=== PATIENT | female | born 1995 | race Hispanic/Latino ===

== ENCOUNTER 2018-09-17 20:41 | Emergency (ER) | payer OTHER ==
[2018-09-17 20:49] VITALS: BP 115/76; PULSE 96; RESP 16; TEMP 98.4; O2SAT 97
--- NOTE | 2018-09-17 21:05 | ED PDOC ---
Lower Extremity Pain/Injury Time Seen by Provider: 09/17/18 20:50 Chief Complaint (Nursing): Lower Extremity Problem/Injury Chief Complaint (Provider): left leg wound History Per: Patient History/Exam Limitations: no limitations Onset/Duration Of Symptoms: Days (1 week) Current Symptoms Are (Timing): Still Present Additional Complaint(s): 23 y/o female presents for evaluation of left thigh wound x 1 week. Patient states she gets ingrown hairs frequently, and started popping and picking at a raised red bump which she thought was an ingrown hair last week which started bleeding. Patient states wound has been open since then. Denies fever, drainage from site, redness to site, numbness/weakness left lower extremity. Past Medical History Reviewed: Historical Data, Nursing Documentation, Vital Signs Vital Signs: Last Vital Signs Temp 98.4 F 09/17/18 20:45 Pulse 96 H 09/17/18 20:45 Resp 16 09/17/18 20:45 BP 115/76 09/17/18 20:45 Pulse Ox 97 09/17/18 20:45 Primary Care Provider: Non [facility] Provider, - Medical History PMH: No Chronic Diseases - Surgical History Surgical History: No Surg Hx - Family History Family History: States: No Known Family Hx - Living Arrangements Living Arrangements: With Family - Home Medications Home Medications: Ambulatory Orders Medication Instructions Recorded Clindamycin [Cleocin] 300 mg PO QID #28 cap 09/17/18 - Allergies Allergies/Adverse Reactions: Allergies Allergy/AdvReac Type Severity Reaction Status Date / Time No Known Allergies Allergy Verified 09/17/18 20:44 Review of Systems ROS Statement: Except As Marked, All Systems Reviewed And Found Negative Musculoskeletal: Positive for: Leg Pain (left thigh) Physical Exam - Reviewed Nursing Documentation Reviewed: Yes Vital Signs Reviewed: Yes - Physical Exam Appears: Positive for: Well, Non-toxic, No Acute Distress Extremity: Positive for: Normal ROM, Other (0.3cm open boil left medial thigh; minimal surrounding firmness/tenderness. No active drainage, skin warmth, or erythema noted) Neurological/Psych: Positive for: Awake, Alert, Oriented (x3) - ECG O2 Sat by Pulse Oximetry: 97 - Progress ED Course And Treament: 23 y/o female here with open left leg wound -wound culture -wound care Wound cleaned with NS, bacitracin applied, bandage applied Patient was educated on findings, discharged with rx Clindamycin Advised warm compresses Follow up PMD within 2-3 days Return precautions given Disposition - Clinical Impression Clinical Impression: Leg wound, left - Patient ED Disposition Is Patient to be Admitted: No Counseled Patient/Family Regarding: Studies Performed, Diagnosis, Need For Followup, Rx Given - Disposition Disposition: Routine/Home Disposition Time: 21:11 Condition: GOOD Prescriptions: Clindamycin [Cleocin] 300 mg PO QID #28 cap Instructions: Boil
== END 2018-09-17 21:30 | disposition home or self-care (01) ==
LOC: H.ER 20:41
DX: L02.429 Furuncle of limb, unspecified (principal)